=== PATIENT | female | born 1965 | race Caucasian/White ===

== ENCOUNTER → 2017-06-27 | Outpatient (CLI) | payer BC ==
--- NOTE | 2017-06-27 14:10 | REPMRS ---
Patient History The patient states she had a clinical breast exam in May 2017.Family history of breast cancer in paternal aunt, colorectal cancer in maternal cousin, and colorectal cancer in maternal uncle. Digital Mammo Screening Bilat: June 27, 2017 - Exam #: [id number] Bilateral CC and MLO view(s) were taken. Technologist: Ruthie Blanco, Technologist Prior study comparison: 2016, digital bilateral screening mammo, performed at [facility]. FINDINGS: The breast tissue is heterogeneously dense. This may lower the sensitivity of mammography. There has been no change in the appearance of the mammogram from the prior studies. There is a moderate amount of residual fibroglandular tissue which is fairly symmetric. There is no interval development of dominant mass, architectural distortion, or clustered microcalcification typical of malignancy. There are scattered, small, benign calcifications of doubtful clinical significance. Scattered lymph nodes are seen in the axilla. No significant changes when compared with prior studies. ASSESSMENT: BI-RADS/ACR category 2 mammogram. Benign finding(s). Recommendation Routine screening mammogram in 1 year (for women over age 40). This mammogram was interpreted with the aid of an FDA-approved computer-aided dectection system. A. Negative x-ray reports should not delay biopsy if a dominant or clinically suspicious mass is present. B. Four to eight percent of cancers are not identified by mammography. C. Adenosis and dense breast may obscure an underlying neoplasm. Electronically Signed By: Grayson Sierra MD 06/27/17 [id number]
--- NOTE | 2017-06-28 01:12 | REP ---
Clinical: Pain. Technique: AP, lateral, bilateral oblique views of the right toes. Findings: Age-related changes are appreciated. No definite acute fracture or dislocation. No subcutaneous emphysema or radiodense foreign body. Impression: Age-related changes. No definite acute fracture or dislocation. Signed by Matti Montes MD 06/28/2017 01:04 A
== END ==
LOC: M RAD 12:06
PROVIDERS: ATTEND Family Medicine
DX: Z12.31 Encounter for screening mammogram for malignant neoplasm of breast (principal); M79.674 Pain in right toe(s)
CPT/HCPCS: 73660; G0202

== ENCOUNTER → 2017-10-22 | Outpatient (REF) | payer BC | LOC: M LAB REF 11:08 | PROVIDERS: ATTEND Otolaryngology | DX: N39.0 Urinary tract infection, site not specified (principal) ==

== ENCOUNTER → 2017-12-22 | Outpatient (REF) | payer BC | LOC: M LABDRWCV 17:18 | DX: N39.0 Urinary tract infection, site not specified (principal) | CPT/HCPCS: 87086 ==

== ENCOUNTER → 2018-06-28 | Outpatient (CLI) | payer BC | LOC: M WHC 13:03 | DX: M85.851 Other specified disorders of bone density and structure, right thigh (principal); M85.852 Other specified disorders of bone density and structure, left thigh; M85.88 Other specified disorders of bone density and structure, other site; M81.0 Age-related osteoporosis without current pathological fracture | CPT/HCPCS: 77080 ==

== ENCOUNTER → 2018-06-28 | Outpatient (CLI) | payer BC | LOC: M RAD 11:47 | DX: Z12.31 Encounter for screening mammogram for malignant neoplasm of breast (principal) | CPT/HCPCS: 77067 ==

== ENCOUNTER → 2019-07-17 | Outpatient (CLI) | payer BC ==
[2019-07-17 13:25] LABS: ALBUMIN 3.5 GM/DL (3.2-5.2); ALT/SGPT 21 U/L (12-78); BILIRUBIN,TOTAL 1.1 MG/DL (0.2-1.0); BLOOD UREA NITROGEN 20 MG/DL (7-18); CALCIUM LEVEL 9.2 MG/DL (8.5-10.1); CARBON DIOXIDE LEVEL 29 MEQ/L (21-32); CHLORIDE LEVEL 109 MEQ/L (98-107); CHOLESTEROL LEVEL 241 MG/DL (<200); CHOLESTEROL RISK RATIO 2.903 (<5); CREATININE FOR GFR 0.83 MG/DL (0.55-1.30); GLOMERULAR FILTRATION RATE > 60.0 (>51); GLUCOSE, FASTING 96 MG/DL (70-100); HDL CHOLESTEROL 83 MG/DL (>40); LDL CHOLESTEROL 143 MG/DL (<100); NON-HDL-C 158 MG/DL; POTASSIUM SERUM 4.2 MEQ/L (3.5-5.1); SODIUM LEVEL 143 MEQ/L (136-145); TOTAL PROTEIN 6.2 GM/DL (6.4-8.2); TRIGLYCERIDES LEVEL 74 MG/DL (<150)
[2019-07-18 14:07] LABS: Lyme Disease IgG/IgM Antibodie <0.91 ISR (0.00-0.90); Lyme Disease IgM Ab Quantitati <0.80 index (0.00-0.79)
[2019-07-18 14:13] LABS: TOTAL 25(OH) VITAMIN D 28.3 NG/ML (30.0-100.0)
== END ==
LOC: M WUC 08:52
PROVIDERS: ATTEND Nurse Practitioner
DX: E78.5 Hyperlipidemia, unspecified (principal); S80.862A Insect bite (nonvenomous), left lower leg, initial encounter

== ENCOUNTER → 2019-07-17 | Outpatient (CLI) | payer BC ==
--- NOTE | 2019-07-17 11:11 | REPMRS ---
Patient History The patient states she had a clinical breast exam in 2018. Family history of colorectal cancer in maternal uncle, breast cancer in paternal aunt, colorectal cancer in maternal cousin, adenocarcinoma at age 81 in mother. 3D TOMOSYNTHESIS WAS PERFORMED. The [employer]ples lifetime risk for breast cancer is 13,3%. Digital Mammo Screening Bilat: July 17, 2019 - Exam #: [id number] Bilateral CC and MLO view(s) were taken. Technologist: Shante Adler, Technologist Prior study comparison: June 28, 2018, bilateral digital mammo screening bilat performed at [facility]. June 27, 2017, bilateral digital mammo screening bilat performed at [facility]. FINDINGS: The breast tissue is heterogeneously dense. This may lower the sensitivity of mammography. There has been no change in the appearance of the mammogram from the prior studies. There is a moderate amount of residual fibroglandular tissue which is fairly symmetric. There is no interval development of dominant mass, areas of architectural distortion, or clustered microcalcification typical of malignancy. Assessment: BI-RADS/ACR category 1 mammogram. Negative Mammogram. Recommendation Routine screening mammogram in 1 year (for women over age 40). This mammogram was interpreted with the aid of an FDA-approved computer-aided dectection system. Electronically Signed By: Galileo Monsivais MD 07/17/19 1111
== END ==
LOC: M RAD 10:02
PROVIDERS: ATTEND Nurse Practitioner
DX: Z12.31 Encounter for screening mammogram for malignant neoplasm of breast (principal); Z80.0 Family history of malignant neoplasm of digestive organs; Z80.3 Family history of malignant neoplasm of breast

== ENCOUNTER → 2019-11-27 | Outpatient (CLI) | payer BC | LOC: M WUC 15:34 | PROVIDERS: ATTEND Internal Medicine Endocrinology, Diabetes & Metabolism | DX: E55.9 Vitamin D deficiency, unspecified (principal) ==

== ENCOUNTER → 2020-08-05 | Outpatient (CLI) | payer BC ==
--- NOTE | 2020-08-21 14:45 | DEXA ---
AP SPINE L1 - L4 0.768 -3.4 -2.5 LT FEMUR TOTAL 0.771 -1.9 -1.1 LT NECK 0.807 -1.7 -0.6 RT FEMUR TOTAL 0.791 -1.7 -1.0 RT NECK 0.790 -1.8 -0.7 TOTAL BODY TOTAL OTHER COMMENTS: There is low bone density of the hips. There is osteoporosis of the spine. The decreased density of the spine does represent significant change. The decreased density of the left hip does not represent a significant change. The decreased density of the right hip does represent significant change. The density of the spine has decreased 13.2% since the initial exam on 05/18/2012. The decreased 5.4% since the most recent exam on 06/28/2018. The density of the left hip has decreased 15.5% since the initial exam on 05/18/2012. The density of the left hip has decreased 0.9% since the most recent exam on 06/28/2018. The density of the right hip has decreased 11.9% since the initial exam on 05/20/2015. The density of the right hip has decreased 5.0% since the most recent exam on 06/28/2018. FOLLOW-UP: Recommendation for the next bone density exam: 2 years. ANA
== END ==
LOC: M WHC 08:15
PROVIDERS: ATTEND Internal Medicine Endocrinology, Diabetes & Metabolism
DX: M81.0 Age-related osteoporosis without current pathological fracture (principal)

== ENCOUNTER → 2020-08-05 | Outpatient (CLI) | payer BC ==
--- NOTE | 2020-08-25 10:05 | REP ---
BILATERAL MAMMOGRAM WITH 3D TOMOSYNTHESIS AND BILATERAL BREAST ULTRASOUND HISTORY: Bilateral tenderness and pain. Family history of breast cancer in paternal aunt. [facility] lifetime risk of breast cancer 12.9%. FINDINGS: MLO and CC views of bilateral breasts performed with 3D tomosynthesis. There is moderate fibroglandular tissue present bilaterally which does not appear to be significantly changed. The Volpara breast density is C. I see no new mass. No architectural distortion is seen. No clustered microcalcifications are seen. Real-time sonographic evaluation of bilateral breasts performed at the site of reported pain and tenderness. In the right retroareolar region, a few minimally dilated ducts are seen with no cystic or solid nodule. In the left breast in the region of 12 oclock, no cystic or solid nodule is seen. IMPRESSION: ACR 2 benign. No suspicious mass or clusters of microcalcifications. There is no mammographic or sonographic evidence of suspicious nodule in the region of reported tenderness and pain in the right retroareolar region and 12 oclock region of the left breast. Clinical correlation and follow up recommended. Recommend follow up mammogram in one year. This mammogram was interpreted with the aid of an FDA approved computer aided detection system. Patient states her last clinical breast exam was July 2020. ACR 2 benign. Send letter 2. MTDD
== END ==
LOC: M WHC 08:03
PROVIDERS: ATTEND Family Medicine
DX: N64.59 Other signs and symptoms in breast (principal)

== ENCOUNTER → 2020-09-02 | Outpatient (CLI) | payer BC ==
[2020-09-02 14:03] LABS: BLOOD UREA NITROGEN 20 MG/DL (7-18); CALCIUM LEVEL 9.5 MG/DL (8.5-10.1); CARBON DIOXIDE LEVEL 28 MEQ/L (21-32); CHLORIDE LEVEL 106 MEQ/L (98-107); CREATININE FOR GFR 0.82 MG/DL (0.55-1.30); GLOMERULAR FILTRATION RATE > 60.0 (>51); GLUCOSE, FASTING 91 MG/DL (70-100); POTASSIUM SERUM 4.3 MEQ/L (3.5-5.1); SODIUM LEVEL 140 MEQ/L (136-145)
[2020-09-02 14:15] LABS: TOTAL 25(OH) VITAMIN D 65.6 NG/ML (30.0-100.0)
== END ==
LOC: M WUC 11:17
PROVIDERS: ATTEND Nurse Practitioner Family
DX: E55.9 Vitamin D deficiency, unspecified (principal); M81.0 Age-related osteoporosis without current pathological fracture

== ENCOUNTER → 2021-07-08 | Outpatient (CLI) | payer BC ==
[~2021-07-08] MED LIST: PROHANCE 279.3MG/ML 15ML VIAL As Ordered ONE
--- NOTE | 2021-07-08 17:58 | REPVR ---
PROCEDURE INFORMATION: Exam: MR Head Without and With Contrast Exam date and time: 07/08/2021 11:02 AM Age: 56 years old Clinical indication: Pain; Headache not specified; Additional info: Quevedo's TECHNIQUE: Imaging protocol: MR of the head without and with intravenous contrast. Contrast material: PROHANCE; Contrast volume: 11 ml; Contrast route: INTRAVENOUS (IV); COMPARISON: No relevant prior studies available. FINDINGS: Brain: No intracranial hemorrhage or extra-axial fluid collection. No evidence of mass effect or midline shift. No white matter abnormalities. No restricted diffusion to suggest acute infarct. No abnormal intracranial enhancement. Cerebral ventricles: Ventricles, cisterns, and sulci are normal. Bones/joints: Unremarkable. Paranasal sinuses: Normal as visualized. No acute sinusitis. Mastoid air cells: No mastoid effusion. Orbital cavity: Unremarkable. Soft tissues: Unremarkable. IMPRESSION: No acute intracranial findings. Electronically signed by: Gage Singh On 07/08/2021 17:57:47 PM
== END ==
LOC: M RAD 09:57
PROVIDERS: ATTEND Otolaryngology
DX: R51.9 Headache, unspecified (principal)
CPT/HCPCS: 70553; A9576

== ENCOUNTER → 2021-07-09 | Outpatient (CLI) | payer BC ==
--- NOTE | 2021-07-09 15:04 | REP ---
INDICATION: M54.2 CERVICALGIA. COMPARISON: None. TECHNIQUE: Routine and flexion/extension views were obtained. FINDINGS: There is narrowing of the C5-6 C6-7 disc spaces. Alignment is normal. There are no fractures. No evidence of instability. No foraminal encroachment. Uncovertebral/facet hypertrophy C5-6 C6-7 levels. IMPRESSION: Spondylosis C5-6 C6-7 levels. Normal alignment. No fractures. <Electronically signed by Kiran Padron > 07/09/21 1500
== END ==
LOC: M WUC 14:34
PROVIDERS: ATTEND Family Medicine
DX: M54.2 Cervicalgia (principal)

== ENCOUNTER → 2021-09-24 | Outpatient (CLI) | payer BC ==
--- NOTE | 2021-09-24 16:01 | REPMRS ---
Patient History The patient states she had a clinical breast exam in July 2021. Family history of colorectal cancer in maternal uncle, breast cancer in paternal aunt, colorectal cancer in maternal cousin, unknown cancer at age 81 in mother. Patient states no breast complaints today. Patient has signed MRS History Sheet. Digital Woman Screen Mammo: September 24, 2021 - Exam #: [id number] Bilateral CC and MLO view(s) were taken. Technologist: Sherine Rudolph, Technologist Prior study comparison: August 05, 2020, diagnostic bilateral mammo performed at [facility]. July 17, 2019, bilateral digital mammo screening bilat, performed at [facility]. FINDINGS: There are scattered fibroglandular densities. Screening. Digital screening (2D) mammography was performed bilaterally in the CC and MLO projections. Additionally, breast tomosynthesis (3D mammography) was performed bilaterally in the CC and MLO projections. Todays exam was compared to the prior exam/exams. By history, the patient has no complaints of a palpable breast abnormality or other significant breast complaints. The Volpara volumetric breast density category is B, there are scattered areas of fibroglandular densities. The breasts are unchanged in size and shape. There are no alfred-soft tissue densities or spiculated masses. There is no internal architectural distortion. There are no suspicious alfred-calcific clusters. Skin thickening or nipple retraction is not present. IMPRESSION: BI-RADS Category 2- Benign Findings. There is no evidence of malignant alteration of the breasts. Followup examination recommended in one year. The lifetime Tyrer-Cuzick score is 12.6% This mammogram was read with the assistance of [employer],an FDA approved computer aided detection system for mammography. Negative x-ray reports should not delay surgical consultation if a dominant or clinically suspicious mass is present. Not all breast cancers can be identified by mammography. Therefore, we recommend that you continue to perform regular breast self-examination and physical examination and then promptly contact your physician of any concerns or changes. Adenosis and dense breasts may obscure an underlying neoplasm. No significant changes when compared with prior studies. Assessment: BI-RADS/ACR category 2 mammogram. Benign Findings. Recommendation Routine screening mammogram of both breasts in 1 year. Electronically Signed By: Amor Malcolm MD 09/24/21 [id number]
== END ==
LOC: M WHC 14:18
PROVIDERS: ATTEND Family Medicine
DX: Z12.31 Encounter for screening mammogram for malignant neoplasm of breast (principal)

== ENCOUNTER → 2022-08-23 | Outpatient (CLI) | payer BC ==
[2022-08-23 17:06] LABS: CHOLESTEROL RISK RATIO 1.988 (<5)
== END ==
LOC: M WUC 13:47
PROVIDERS: ATTEND Physician Assistant Medical
DX: E78.49 Other hyperlipidemia (principal)

== ENCOUNTER → 2022-09-09 | Outpatient (CLI) | payer BC ==
[2022-09-09 16:55] LABS: BASO # 0.1 10^3/uL (0.0-0.2); BASO % 0.8 % (0.0-1.0); EOS # 0.1 10^3/uL (0.0-0.5); EOS % 1.2 % (0.0-3.0); HEMATOCRIT 46.7 % (36.0-47.0); HEMOGLOBIN 15.4 g/dl (12.0-15.5); LYMPH # 2.4 10^3/uL (1.5-5.0); LYMPH % 31.6 % (24.0-44.0); MEAN CORPUSCULAR HEMOGLOBIN 32.2 pg (27.0-33.0); MEAN CORPUSCULAR VOLUME 97.7 fl (80.0-96.0); MONO # 0.6 10^3/uL (0.0-0.8); MONO % 8.1 % (2.0-8.0); NEUTROPHILS # 4.4 10^3/uL (1.5-8.5); PLATELET COUNT, AUTOMATED 210 10^3/uL (150-450); RED BLOOD COUNT 4.78 10^6/uL (4.00-5.40); WHITE BLOOD COUNT 7.5 10^3/uL (4.0-10.0)
[2022-09-09 17:34] LABS: ERYTHROCYTE SEDIMENTATION RATE 2 mm/hr (0-30)
[2022-09-09 17:56] LABS: C REACTIVE PROTEIN QUANTITATIV < 0.30 MG/DL (0.00-0.30); IMMUNOGLOBULIN G 991 MG/DL (681-1648); IMMUNOGLOBULIN M 87.8 MG/DL (40-230)
[2022-09-11 21:07] LABS: ANA (HEP2) Positive (.); HSV TYPE II IgG SPECIFIC <0.91 index (0.00-0.90)
== END ==
LOC: M WUC 11:34
PROVIDERS: ATTEND Internal Medicine Infectious Disease
DX: R50.9 Fever, unspecified (principal); K13.70 Unspecified lesions of oral mucosa

== ENCOUNTER → 2022-10-12 | Outpatient (CLI) | payer BC ==
[2022-10-12 22:48] LABS: HEPATITIS C VIRUS ABY INDEX < 0.8 INDEX (<0.8); HIV 1&2 SCREEN CENTAUR NEGATIVE (NEGATIVE)
== END ==
LOC: M WUC 14:02
PROVIDERS: ATTEND Internal Medicine Infectious Disease
DX: R50.9 Fever, unspecified (principal)

== ENCOUNTER → 2023-02-03 | Outpatient (CLI) | payer BC | LOC: M WHC 14:37 | PROVIDERS: ATTEND Nurse Practitioner Family | DX: Z12.31 Encounter for screening mammogram for malignant neoplasm of breast (principal) ==